=== PATIENT | male | born 1985 | race Caucasian/White ===

== ENCOUNTER 2020-09-18 13:44 | Outpatient (CLI) | payer MEDICAID ==
--- NOTE | 2020-09-18 15:11 | Cat Scan Report ---
CT abdomen pelvis wo con INDICATION: OTHER MICROSCOPIC HEMATURIA. TECHNIQUE: All CT scans at this location are performed using CT dose reduction for ALARA by means of automated e xposure control. COMPARISON: None available. FINDINGS: Lung bases are clear of acute disease. Liver, spleen and pancreas appear negative on this noncontrast exam. Increased attenuation in the fundus of the gallbladder suggests posteriorly layering stones or biliary sludge. Kidneys and adrenals appear negative. No calculi, hydronephrosis or abnormal mass. Abdominal aorta is normal. No adenopathy. Pelvis Normal appendix. Urinary bladder is mostly collapsed but grossly negative. Uterus is unremarkable. Bi lateral tubal ligation. No significant skeletal lesions. IMPRESSION: 1. Questionable small gallstones or biliary sludge. Ultrasound of the gallbladder may be helpful for further evaluation. 2. Urinary tract appears unremarkable on this noncontrast study. I do not see the cause of the patien t's hematuria. Signer Name: Kai Oleary MD Signed: 09/18/2020 3:07 PM Workstation Name: [id number]
== END 2020-09-18 13:45 | disposition home or self-care (01) ==
LOC: CT 13:44
PROVIDERS: ATTEND Urology
DX: R31.29 Other microscopic hematuria (principal)
CPT/HCPCS: 74176

== ENCOUNTER 2020-11-09 10:47 | Outpatient (CLI) | payer MEDICAID ==
--- NOTE | 2020-11-09 12:27 | Ultrasound Report ---
US abdomen complete INDICATION: ABDOMINAL PAIN COMPARISON: None. FINDINGS: Pancreas: Normal. Abdominal aorta: Normal. IVC: Normal. Liver: Normal. Gallbladder: There are stones within the gallbladder without gallbladder wall thickening or perichole cystic fluid. Bingo Worker reports a negative King's sign. Bile ducts: Normal. The common bile duct measures 2 mm. Kidneys: Normal. Spleen: Normal. There is no free fluid in the abdomen. IMPRESSION: Cholelithiasis without evidence of cholecystitis. Signer Name: Rm Mota MD Signed: 11/09/2020 12:23 PM Workstation Name: [id number]
== END 2020-11-09 10:48 | disposition home or self-care (01) ==
LOC: US 10:47 → EDSEX 10:47 → US 10:48
PROVIDERS: ATTEND Surgery
DX: K80.20 Calculus of gallbladder without cholecystitis without obstruction (principal)
CPT/HCPCS: 76700

== ENCOUNTER 2020-12-07 06:00 | Day surgery (SDC) | payer MEDICAID ==
[2020-12-05 10:16] LABS: Hematocrit 34.2 % (30.3-42.9); Hemoglobin 11.2 gm/dl (10.1-14.3); Mean Corpuscular HGB Conc 33 % (30-34); Mean Corpuscular Volume 80 fl (79-97); Platelet Count 346 K/mm3 (140-440); Red Blood Count 4.29 M/mm3 (3.65-5.03); Red Cell Distribution Width 16.4 % (13.2-15.2)
[~2020-12-07 06:00] MED LIST: ACETAMINOPHEN 500 MG TAB PO SCH; CELECOXIB 200 MG CAP PO NR; GABAPENTIN 300 MG CAP PO NR; LACTATED RINGERS 1,000 ML IV SCH; MIDAZOLAM 2 MG/2 ML INJ IV NR; SCOPOLAMINE TRANSDERMAL PATCH 72 HR TD NR
[2020-12-07] MEDS ORDERED: ceFAZolin/Water 2 GM/20 ML 2 GM/20 ML SYRINGE IV ONE (06:38)
[2020-12-07] MEDS ORDERED: BACTERIOSTATIC SODIUM CHLORIDE 0.9% 30 ML VIAL INFILTRATI ONE (06:38)
[2020-12-07] MEDS ORDERED: BUPIVACAINE/PF (0.25%) 2.5 MG/ML 30 ML VIAL INFILTRATI ONE (07:10)
[2020-12-07] MEDS ORDERED: LIDOCAINE (1%) 10 MG/1 ML VIAL 20 ML MDV ONE (07:10)
[2020-12-07] MEDS ORDERED: propofoL 200 MG/20 ML VIAL IV ONE (07:14)
[2020-12-07] MEDS ORDERED: ceFAZolin/STERILE WATER 2 GM/20 ML SYRINGE IV NR (07:14)
[2020-12-07] MEDS ORDERED: fentaNYL 100 MCG/2 ML INJ ONE (07:14)
--- NOTE | 2020-12-07 07:14 | Anesthesia Consultation ---
Anesthesia Consult and Med Hx Date of service: 12/07/20 - Airway Anesthetic Teeth Evaluation: Good ROM Head & Neck: Adequate Mental/Hyoid Distance: Adequate Mallampati Class: Class I Intubation Access Assessment: Good - Pulmonary Exam CTA: Yes - Cardiac Exam Cardiac Exam: RRR - Pre-Operative Health Status ASA Pre-Surgery Classification: ASA1 Proposed Anesthetic Plan: General - Pulmonary Hx Smoking: No Hx Sleep Apnea: No (MARIE PRE SCREEN NEGATIVE) - Cardiovascular System Hx Hypertension: No - Central Nervous System Hx Psychiatric Problems: No - Hematic Hx Anemia: Yes (NOT RECENT) - Other Systems Hx Cancer: No
--- NOTE | 2020-12-07 07:14 | Anesthesia Day of Surgery ---
Anesthesia Day of Surgery - Day of Surgery Patient Examined: Yes Patient H&P Reviewed: Yes Patient is NPO: Yes
[2020-12-07] MEDS ORDERED: oxyCODONE /ACETAMINOPHEN 5-325MG TAB PO PRN (07:31)
[2020-12-07] MEDS ORDERED: HYDROmorphone 1 MG/1 ML INJ IV PRN (07:31)
[2020-12-07] MEDS ORDERED: KETOROLAC 30 MG/1 ML INJ ONE (07:49)
[2020-12-07] MEDS ORDERED: dexAMETHasone 20 MG/5 ML VIAL ONE (07:49)
[2020-12-07] MEDS ORDERED: ONDANSETRON 4 MG/2 ML INJ ONE (07:49)
[2020-12-07] MEDS ORDERED: SUCCINYLCHOLINE CHLORIDE 200 MG/10 ML INJ MDV ONE (07:49)
[2020-12-07] MEDS ORDERED: LIDOCAINE MPF (2%) 20 MG/1 ML VIAL 5 ML ONE (07:49)
[2020-12-07] MEDS ORDERED: ONDANSETRON 4 MG/2 ML INJ IV PRN (08:00)
[2020-12-07] MEDS ORDERED: LIDOCAINE (1%) 10 MG/1 ML VIAL 20 ML MDV INFILTRATI ONE (08:12)
[2020-12-07] MEDS ORDERED: SODIUM CHLORIDE 0.9% IRR 1,500 ML BOTTLE IR ONE (08:12)
[2020-12-07] MEDS ORDERED: BUPIVACAINE/PF (0.5%) 5 MG/1 ML 10 ML VIAL INFILTRATI ONE (08:13)
[2020-12-07] MEDS ORDERED: NEOSTIGMINE 10MG/10 ML INJ MDV ONE (08:37)
[2020-12-07] MEDS ORDERED: GLYCOPYRROLATE 0.4 MG/2 ML INJ ONE ×2 (08:37)
--- NOTE | 2020-12-07 09:01 | Short Stay Summary ---
Short Stay Documentation Date of service: 12/07/20 - History Principal diagnosis: symptomatic cholelithiasis H&P: obtained from office - Allergies and Medications Current Medications: Allergies No Known Allergies Allergy (Verified 12/04/20 11:29) Home Medications Medication Instructions Recorded Confirmed Last Taken Type No Known Home Medications [No 12/04/20 12/04/20 Unknown History Reported Home Medications] Active Medications Acetaminophen (Acetaminophen 500 Mg Tab) 1,000 mg PO PREOP DUNG Last Admin: 12/07/20 06:52 Dose: 1,000 mg Documented by: Cefazolin Sodium (Cefazolin/Sterile Water 2 Gm/20 Ml Syringe) 2 gm IV PREOP NR Stop: 12/07/20 11:00 Celecoxib (Celecoxib 200 Mg Cap) 200 mg PO PREOP NR Stop: 12/07/20 23:01 Last Admin: 12/07/20 06:52 Dose: 200 mg Documented by: Gabapentin (Gabapentin 300 Mg Cap) 300 mg PO PREOP NR Stop: 12/07/20 23:01 Last Admin: 12/07/20 06:52 Dose: 300 mg Documented by: Hydromorphone HCl (Hydromorphone 1 Mg/1 Ml Inj) 0.5 mg IV Q10MIN PRN PRN Reason: Pain , Severe (7-10) Stop: 12/07/20 23:00 Lactated Ringer's (Lactated Ringers) 1,000 mls @ 100 mls/hr IV DIRECT DUNG Stop: 12/07/20 23:59 Last Admin: 12/07/20 07:00 Dose: 100 mls/hr Documented by: Midazolam HCl (Midazolam 2 Mg/2 Ml Inj) 2 mg IV PREOP NR Stop: 12/07/20 23:01 Ondansetron HCl (Ondansetron 4 Mg/2 Ml Inj) 4 mg IV ONCE PRN PRN Reason: Nausea And Vomiting Stop: 12/07/20 16:00 Oxycodone/Acetaminophen (Oxycodone /Acetaminophen 5-325mg Tab) 1 tab PO ONCE PRN PRN Reason: Pain, Moderate (4-6) Stop: 12/07/20 20:00 Scopolamine (Scopolamine Transdermal Patch 72 Hr) 1 each TD PREOP NR Stop: 12/07/20 23:01 Last Admin: 12/07/20 06:53 Dose: 1 each Documented by: - Brief post op/procedure progress note Date of procedure: 12/07/20 Pre-op diagnosis: symptomatic cholelithiasis Post-op diagnosis: same Procedure: lap cholecystectomy Anesthesia: GETA, local Findings: distended gallbladder with 3.5 cm stone Surgeon: GARY JARQUIN Automobile Accessories Installer: JIA GRIFFIN Estimated blood loss: minimal Pathology: list (gallbladder) Specimen disposition: to lab Condition: stable - Hospital course Hospital course: Pt recovered in PACU and discharged to home in stable condition when criteria met - Disposition Condition at discharge: Good Disposition: DC-01 TO HOME OR SELFCARE Short Stay Discharge Plan Activity: other (no driving if taking prescription pain medications) Diet: regular Wound: open to air, per your surgeon's advice Additional Instructions: SEE PRINTED DISCHARGE INSTRUCTIONS TAKE IBUPROFEN OR TYLENOL FOR MILD TO MODERATE PAIN. Follow up with: NASRIN BYERS MD [Primary Care Provider] - 7 Days GARY JARQUIN DO [Staff Physician] - 14 Days Prescriptions: HYDROcodone/APAP 5-325 [[place] 5/325] 1 each PO Q4HR PRN #20 tablet PRN Reason: Pain , Severe (7-10)
--- NOTE | 2020-12-07 09:06 | Operative Report ---
Operative Report Operative Report: Date of procedure: 12/07/20 Pre-op diagnosis: symptomatic cholelithiasis Post-op diagnosis: same Procedure: lap cholecystectomy Anesthesia: GETA, local Findings: distended gallbladder with 3.5 cm stone Surgeon: GARY JARQUIN Credit Manager: JIA GRIFFIN Estimated blood loss: minimal Pathology: list (gallbladder) Specimen disposition: to lab Condition: stable Hospital course: Pt recovered in PACU and discharged to home in stable condition when criteria met HPI an indication: 35-year-old female who presented to the surgery clinic with complaints of intermittentupper quadrant abdominal pain. Patient found to have gallstones on imaging It was recommended that the patient undergo cholecystectomy. All risks, benefits, alternatives to surgery were discussed in detail and questions answered. Consent was obtained for laparoscopic, possible open cholecystectomy, possible cholangiogram. Procedure in detail: The patient was identified in the preoperative area and taken back to the operating room, placed on the operating room table in supine position. After anesthesia was induced, the abdomen was prepped and draped in usual sterile fashion and timeout was performed. Local anesthetic was infiltrated into all of the skin incision sites. Using an 11 blade, a supraumbilical incision was made through which a Veress needle was inserted. The position of the veress needle was confirmed with the saline drop test and the abdomen was then insufflated to 15 mmHg without incident. The veress needle was then removed and a 5 mm Optiview trocar placed through this incision. The abdomen was then inspected and there was no underlying injury to any of the abdominal contents. An additional 12 mm subxyphoid port, and 2, 5mm RUQ ports were then placed under direct visualization. The patient was then placed into reverse Trendelberg and tilted to the left. The gallbladder was visualized and appeared distended. The gallbladder fundus was grasped and retracted cephalad a nd above the liver. Adequate retraction could not be achieved and therefore it was decided to start with a dome down approach. The peritoneum was scored between the gallbladder and the liver and dissection carried out in an avascular plane in order to separate the gallbladder from the liver. This was carried out for a few centimeters and then the gallbladder retracted above the liver. Retraction was better and the gallbladder neck was able to be visualized easily. The infundibulum was grasped and retracted laterally. Using [place] dissector overlying fat was dissected bluntly. The cystic duct and artery were then carefully dissected. Once skeletonized, it was apparent that the cystic duct and artery were the only 2 structures entering the gallbladder. The critical view was successfully obtained. 3 clips were placed on the proximal aspect of the cystic duct and 1 distally, and 2 clips proximally on the cystic artery and one distally. The structures were transected in between the clips using EndoShears. The gallbladder was then dissected off the liver bed using hook electrocautery. Hemostasis was achieved along the way. The gallbladder was placed into an Endo Catch bag and removed via the 12 mm port. A 3.5 cm stone was palpable in the gallbladder. The liver bed and gallbladder fossa were then inspected and there was no bleeding or bile leakage identified. The clips on the cystic artery and duct were visualized and intact. The patient was placed in neutral position. The 12 mm port fascia was closed with interrupted 0 Vicryl sutures using the Jacob Singh device x2. The remainder of the ports removed under direct visualization the abdomen desufflated. The skin incisions were once again infiltrated with local anesthetic. The skin was approximated using 4-0 Monocryl subcuticular stitches and skin glue. At the end case all sponge, instrument, sharp counts were correct 2. The patient was awoken from anesthesia, extubated, and taken to PACU in stable condition. Patient's was updated.
[2020-12-07 09:59] VITALS: BP 123/60
--- NOTE | 2020-12-07 10:24 | Post Anesthesia Evaluation ---
- Post Anesthesia Evaluation Patient Participated: Yes Airway Patent: Yes Stable Respiratory Function: Yes Nausea/Vomiting: No Temp > 96.8F: Yes Pain Manageable: Yes Adequeate Hydration: Yes Anesthesia Complications: No
== END 2020-12-07 10:15 | disposition home or self-care (01) ==
LOC: OR 06:00
PROVIDERS: ATTEND Surgery
DX: K80.10 Calculus of gallbladder with chronic cholecystitis without obstruction (principal); Z20.822 Contact with and (suspected) exposure to COVID-19; Z79.899 Other long term (current) drug therapy; Z98.51 Tubal ligation status; Z87.440 Personal history of urinary (tract) infections; Z98.890 Other specified postprocedural states; Z86.2 Personal history of diseases of the blood and blood-forming organs and certain disorders involving the immune mechanism
CPT/HCPCS: 36415; 47562; 84703; 85027; 88304; J0330; J0690; J1100; J1170; J1885; J2405; J2704; J2710; J3010; J7120; U0003; J2250